=== PATIENT | female | born 1995 | race Two or more races ===

== ENCOUNTER 2020-12-12 22:54 | Emergency (ER) | payer SELFPAY ==
[~2020-12-12 22:54] MED LIST: AMOXICILLIN875 MG PO; CLOTRIMAZOLE10 ML EARRT
[2020-12-12 23:33] LABS: HEMOGLOBIN 13.3 gm/dl (12.3-15.3); RED BLOOD COUNT 4.36 M/UL (4.00-5.10); WHITE BLOOD COUNT 9.3 K/UL (4.5-11.0)
[2020-12-13 00:01] LABS: BUN/CREATININE RATIO 22 (0-10)
[2020-12-13] MEDS ORDERED: ZOFRAN ODT 4 MG4 MG SL (02:39)
== END 2020-12-13 02:53 | disposition home or self-care (01) ==
LOC: ER1 22:54
PROVIDERS: Emergency Medicine
DX: U07.1 COVID-19 (principal); Z90.89 Acquired absence of other organs
CPT/HCPCS: 71045; 80053; 82550; 82553; 83690; 83874; 84484; 85025; 85379; 93005; 99285; U0002